=== PATIENT | female | born 1970 | race African-American/Black ===

== ENCOUNTER 2021-06-18 11:15 | Emergency (ER) | payer SELFPAY ==
[2021-06-18] MEDS ORDERED: Ketorolac Tromethamine 30 MG/ML VIAL ONE (12:30)
== END 2021-06-18 12:48 | disposition home or self-care (01) ==
LOC: CSHERS 11:15
DX: L03.811 Cellulitis of head [any part, except face] (principal); M25.511 Pain in right shoulder; M25.551 Pain in right hip; I10 Essential (primary) hypertension
CPT/HCPCS: 96372; J1885

== ENCOUNTER 2021-07-11 19:09 | Emergency (ER) | payer SELFPAY | END 2021-07-12 01:07 | disposition left against medical advice (07) | LOC: CSHERS 19:09 | DX: Z53.21 Procedure and treatment not carried out due to patient leaving prior to being seen by health care provider (principal) ==

== ENCOUNTER 2021-07-25 13:34 | Inpatient (IN) | payer OTHER, SELFPAY ==
[2021-07-25 14:49] LABS: #Eosinphils 0.4 10x3/uL (0.0-0.5); #Monocytes 0.8 10x3/uL (0.0-1.1); #Neutrophils 3.4 10x3/uL (1.5-8.4); %Basophils 0.3 % (0.0-2.0); %Eosinophils 4.9 % (0.0-6.0); %Lymphocytes 37.5 % (18.0-47.0); %Monocytes 10.4 % (0.0-10.0); %Neutrophils 46.6 % (40.0-75.0); Hemoglobin 11.6 g/dL (12.0-15.5); Mean Corpuscular HGB CONC 33.2 g/dL (32.0-36.0); Mean Corpuscular Hemoglobin 31.8 pg (27.0-33.0); Mean Corpuscular Volume 95.6 fl (81.6-98.3); Mean Platelet Volume 9.6 fl (7.4-10.4); Platelet Count 215 10x3/uL (150-450); RBC Distribution Width 13.2 % (11.5-14.5); Red Blood Cell (RBC) Count 3.65 10x6/uL (3.90-5.03); White Blood Cell (WBC) Count 7.3 10x3/uL (3.5-10.5)
[2021-07-25 14:58] LABS: ALT (SGPT) 27 U/L (8-55); AST (SGOT) 56 U/L (5-34); Albumin 3.4 g/dL (3.5-5.0); Alkaline Phosphatase 58 U/L (40-110); Anion Gap 10 mmol/L (10-20); BUN (Urea Nitrogen) 23 mg/dL (7.0-18.7); Bilirubin, Total 0.3 mg/dL (0.2-1.2); Calc. Creatinine Clearance 0 mL/min (70-130); Calcium 8.3 mg/dL (7.8-10.44); Carbon Dioxide 26 mmol/L (22-29); Chloride 109 mmol/L (98-107); Globulin 2.5 g/dL (2.4-3.5); Glucose 124 mg/dL (70-105); Potassium 4.3 mmol/L (3.5-5.1); Protein, Total 5.9 g/dL (6.0-8.3); Sodium 141 mmol/L (136-145)
[2021-07-25 15:20] LABS: CKMB 5.7 ng/mL (0-6.6)
[2021-07-25] MEDS ORDERED: Nitroglycerin 2% Ointment 1 INCH/1 GM Packet ONE (15:39)
[2021-07-25] MEDS ORDERED: Heparin 5,000 UNITS/ML VIAL ONE (15:39)
[2021-07-25] MEDS ORDERED: Aspirin Chewable 81 MG TAB ONE (15:39)
[2021-07-25] MEDS ORDERED: Heparin 25,000 units/D5W 500 ML ONE (15:40)
[2021-07-25] MEDS ORDERED: Acetaminophen 325 MG TAB PO PRN (17:23)
[2021-07-25] MEDS ORDERED: Acetaminophen 650 MG Suppository PR PRN (17:23)
[2021-07-25] MEDS ORDERED: Nitroglycerin 0.4 MG TAB (25 Tab Bottle) SL PRN (17:23)
[2021-07-25 17:48] LABS: Platelet Count 247 10x3/uL (150-450)
[2021-07-25 17:54] LABS: Troponin I 1.468 ng/mL (< 0.028)
[2021-07-25 19:15] LABS: Bilirubin Neg (Negative); Blood, Urine 50 (Negative); Clarity Clear (Clear); Glucose, Urine (Dipstick) Normal (Negative); Ketone, Urine Negative (Negative); Leukocyte Negative (Negative); Nitrite Negative (Negative); Protein, Urine (Dipstick) Negative (Neg-Trace)
[2021-07-25 19:20] LABS: SARS-CoV-2 NAA Rapid Test Not Detected (NotDetected)
[2021-07-25 19:24] LABS: Amphetamine Not Detected (NotDetected); Barbiturates Screen Not Detected (NotDetected); Benzodiazepine Screen Not Detected (NotDetected); Cocaine Metabolite Screen Detected (NotDetected); Methadone Not Detected (NotDetected); Methamphetamine Not Detected (NotDetected); Opiate Screen Not Detected (NotDetected); Oxycodone Screen Not Detected (NotDetected); Phencyclidine (PCP) Not Detected (NotDetected); THC/Cannabinoid Screen Detected (NotDetected); Tricyclic Screen Not Detected (NotDetected)
[2021-07-25 19:25] LABS: Bacteria/HPF Rare-Few HPF (None Seen); RBC/HPF 0-3 HPF (0-3); Squamous Epithelial 0-3 HPF (0-3); WBC/HPF 0-3 HPF (0-3)
[2021-07-25] MEDS ORDERED: Heparin 25,000 units/D5W 500 ML IVPB SCH (21:00)
[2021-07-26] MEDS: Atorvastatin Calcium 40 MG TAB PO SCH ×2 (00:30→01:02)
[2021-07-26] MEDS: Heparin 10,000 UNITS/ 10 ML VIAL SLOW IVP SCH ×2 (00:40→10:05)
[2021-07-26 02:13] VITALS: BMI 29.8
[2021-07-26 05:07] LABS: #Eosinphils 0.4 10x3/uL (0.0-0.5); #Monocytes 0.8 10x3/uL (0.0-1.1); #Neutrophils 2.2 10x3/uL (1.5-8.4); %Basophils 0.5 % (0.0-2.0); %Eosinophils 5.8 % (0.0-6.0); %Lymphocytes 45.9 % (18.0-47.0); %Monocytes 12.9 % (0.0-10.0); %Neutrophils 34.7 % (40.0-75.0); Hemoglobin 10.9 g/dL (12.0-15.5); Mean Corpuscular HGB CONC 33.1 g/dL (32.0-36.0); Mean Corpuscular Hemoglobin 31.1 pg (27.0-33.0); Mean Platelet Volume 9.5 fl (7.4-10.4); Platelet Count 207 10x3/uL (150-450); RBC Distribution Width 13.1 % (11.5-14.5); White Blood Cell (WBC) Count 6.2 10x3/uL (3.5-10.5)
[2021-07-26 05:28] LABS: Anion Gap 10 mmol/L (10-20); BUN (Urea Nitrogen) 14 mg/dL (7.0-18.7); Calc. Creatinine Clearance 129 mL/min (70-130); Calcium 8.8 mg/dL (7.8-10.44); Carbon Dioxide 25 mmol/L (22-29); Cardiac Risk 2.4 (Less than 4.5); Chloride 109 mmol/L (98-107); Cholesterol 160 mg/dl (< 200 Desired); Glucose 89 mg/dL (70-105); HDL Cholesterol 67 mg/dL (>60 Neg Risk); LDL Cholesterol, Calculated 84 mg/dL; Potassium 3.7 mmol/L (3.5-5.1); Sodium 140 mmol/L (136-145); Triglycerides 43 mg/dL (Less than 150)
[2021-07-26 07:55] VITALS: TEMP 97.3
[2021-07-26] MEDS ORDERED: Aspirin Chewable 81 MG TAB PO SCH (09:00)
[2021-07-26] MEDS ORDERED: Amlodipine 5 MG TAB PO SCH (09:00)
[2021-07-26 10:47] LABS: Troponin I 1.478 ng/mL (< 0.028)
[2021-07-26 13:45] LABS: CKMB 3.9 ng/mL (0-6.6)
[2021-07-26 15:59] VITALS: BP 140/86
== END 2021-07-26 16:53 | disposition left against medical advice (07) | DRG 917 ==
LOC: CSHERS 13:34 → CSHERHOLD 21:09 → CSHTELE 07-26 00:04
PROVIDERS: ADMIT Hospitalist; ATTEND Physician Assistant
DX: T40.5X1A Poisoning by cocaine, accidental (unintentional), initial encounter (principal); I21.A1 Myocardial infarction type 2; Z20.822 Contact with and (suspected) exposure to COVID-19; I10 Essential (primary) hypertension; F41.9 Anxiety disorder, unspecified; F31.9 Bipolar disorder, unspecified; F12.90 Cannabis use, unspecified, uncomplicated; E78.5 Hyperlipidemia, unspecified; F17.210 Nicotine dependence, cigarettes, uncomplicated; I25.10 Atherosclerotic heart disease of native coronary artery without angina pectoris; Z79.891 Long term (current) use of opiate analgesic; Z71.51 Drug abuse counseling and surveillance of drug abuser; Z79.899 Other long term (current) drug therapy; Z91.14 Patient's other noncompliance with medication regimen
CPT/HCPCS: 36415; 80048; 80053; 80061; 80306; 81003; 81015; 82553; 84484; 85025; 85730; 93005; 93306; 94760; J1644; U0002

== ENCOUNTER 2022-05-28 07:42 | Inpatient (IN) | payer OTHER, SELFPAY ==
[2022-05-28 08:07] LABS: #Eosinphils 0.1 10x3/uL (0.0-0.5); #Monocytes 0.8 10x3/uL (0.0-1.1); #Neutrophils 6.1 10x3/uL (1.5-8.4); %Basophils 0.3 % (0.0-2.0); %Eosinophils 0.6 % (0.0-6.0); %Monocytes 10.1 % (0.0-10.0); %Neutrophils 77.6 % (40.0-75.0); Hemoglobin 13.7 g/dL (12.0-15.5); Mean Corpuscular HGB CONC 34.9 g/dL (32.0-36.0); Mean Corpuscular Hemoglobin 32.8 pg (27.0-33.0); Mean Corpuscular Volume 93.8 fl (81.6-98.3); Mean Platelet Volume 9.2 fl (7.4-10.4); Platelet Count 208 10x3/uL (150-450); RBC Distribution Width 12.4 % (11.5-14.5); Red Blood Cell (RBC) Count 4.18 10x6/uL (3.90-5.03); White Blood Cell (WBC) Count 7.8 10x3/uL (3.5-10.5)
[2022-05-28 08:21] LABS: ALT (SGPT) 24 U/L (8-55); AST (SGOT) 31 U/L (5-34); Alkaline Phosphatase 68 U/L (40-110); Anion Gap 13 mmol/L (10-20); BUN (Urea Nitrogen) 12 mg/dL (9.8-20.1); Bilirubin, Total 0.3 mg/dL (0.2-1.2); Calc. Creatinine Clearance 0 mL/min (70-130); Carbon Dioxide 25 mmol/L (22-29); Chloride 104 mmol/L (98-107); Estimated GFR 84; Globulin 3.4 g/dL (2.4-3.5); Glucose 94 mg/dL (70-105); Potassium 4.3 mmol/L (3.5-5.1); Protein, Total 7.4 g/dL (6.0-8.3); Sodium 138 mmol/L (136-145)
[2022-05-28 09:03] LABS: CKMB 0.6 ng/mL (0-6.6)
[2022-05-28] MEDS ORDERED: Ondansetron PF 4 MG/2 ML Vial ONE (09:20)
[2022-05-28] MEDS ORDERED: Acetaminophen 500 MG TAB ONE (09:20)
[2022-05-28] MEDS ORDERED: Aspirin 325 MG TAB ONE (09:21)
[2022-05-28] MEDS ORDERED: Enoxaparin Sodium 60 MG/0.6 ML SYRINGE ONE (09:21)
[2022-05-28] MEDS ORDERED: HYDROcodone/Acetaminophen 7.5/325 mg Tablet PO PRN (10:53)
[2022-05-28] MEDS ORDERED: Acetaminophen 325 MG TAB PO PRN (10:53)
[2022-05-28] MEDS ORDERED: Senokot S 8.6-50 MG TAB PO PRN (10:53)
[2022-05-28] MEDS ORDERED: Ondansetron PF 4 MG/2 ML Vial IVP PRN (10:57)
[2022-05-28 11:37] LABS: Troponin I 0.316 ng/mL (< 0.028)
[2022-05-28] MEDS ORDERED: HYDROcodone/Acetaminophen 7.5/325 mg Tablet ONE (14:04)
[2022-05-28 15:09] LABS: Troponin I 0.293 ng/mL (< 0.028)
[2022-05-28 15:14] LABS: SARS-CoV-2 NAA Rapid Test Not Detected (NotDetected)
[2022-05-28] MEDS: Sodium Chloride 0.9% 1,000 ML IV SCH (16:23)
[2022-05-28 16:51] LABS: Bilirubin Neg (Negative); Blood, Urine 150 (Negative); Glucose, Urine (Dipstick) Normal (Negative); Ketone, Urine Negative (Negative); Leukocyte Negative (Negative); Nitrite Negative (Negative); Protein, Urine (Dipstick) 15 mg/dl (Neg-Trace); Specific Gravity, Urine 1.015 (1.005-1.030); Urobilinogen Normal mg/dL (Less than 2)
[2022-05-28 16:52] VITALS: BMI 27.8
[2022-05-28 16:53] LABS: Clarity Clear (Clear)
[2022-05-28] MEDS ORDERED: FLU VACC QS2022-23(6MOS UP)/PF 60 MCG/0.5 ML SYRINGE IM ONE (17:00)
[2022-05-28 17:01] LABS: Amphetamine Not Detected (NotDetected); Barbiturates Screen Not Detected (NotDetected); Benzodiazepine Screen Not Detected (NotDetected); Cocaine Metabolite Screen Detected (NotDetected); Methadone Not Detected (NotDetected); Methamphetamine Not Detected (NotDetected); Opiate Screen Not Detected (NotDetected); Oxycodone Screen Not Detected (NotDetected); Phencyclidine (PCP) Not Detected (NotDetected); THC/Cannabinoid Screen Detected (NotDetected); Tricyclic Screen Not Detected (NotDetected)
[2022-05-28 17:04] LABS: Bacteria/HPF 1+ HPF (None Seen); Mucous/LPF 2+ LPF (<2+); Squamous Epithelial 0-3 HPF (0-3); WBC/HPF 0-3 HPF (0-3)
[2022-05-28] MEDS ORDERED: GUAIFENESIN SF SOLN 200 MG/10 ML UDCUP PO PRN (17:22)
[2022-05-28] MEDS ORDERED: Promethazine HCl 6.25 MG/5 ML Syrup PO PRN (17:43)
[2022-05-28] MEDS ORDERED: Cepastat Lozenges 1 LOZ PO PRN (17:50)
[2022-05-28] MEDS: HYDROcodone/Acetaminophen 7.5/325 mg Tablet PO PRN ×2 (18:05→21:37)
[2022-05-28] MEDS: GUAIFENESIN SF SOLN 200 MG/10 ML UDCUP PO PRN ×2 (18:12→21:39)
[2022-05-28] MEDS ORDERED: Famotidine 20 MG TAB PO SCH (21:00)
[2022-05-28] MEDS ORDERED: guaiFENesin ER 600 MG TAB PO SCH (21:00)
[2022-05-28] MEDS: Benzonatate 100 MG CAP PO PRN (21:36)
[2022-05-28] MEDS: Enoxaparin Sodium 80 MG/0.8 ML SYRINGE SC SCH (21:36)
[2022-05-28] MEDS: Atorvastatin Calcium 40 MG TAB PO SCH (21:36)
[2022-05-28] MEDS: Metoprolol Tartrate 25 MG TAB PO SCH (21:37)
[2022-05-29] MEDS: HYDROcodone/Acetaminophen 7.5/325 mg Tablet PO PRN ×6 (01:51→23:41)
[2022-05-29 04:43] LABS: #Eosinphils 0.1 10x3/uL (0.0-0.5); #Monocytes 0.8 10x3/uL (0.0-1.1); #Neutrophils 5.5 10x3/uL (1.5-8.4); %Basophils 0.3 % (0.0-2.0); %Eosinophils 1.1 % (0.0-6.0); %Lymphocytes 14.6 % (18.0-47.0); %Monocytes 10.9 % (0.0-10.0); %Neutrophils 72.8 % (40.0-75.0); Hemoglobin 12.7 g/dL (12.0-15.5); Mean Corpuscular HGB CONC 35.2 g/dL (32.0-36.0); Mean Corpuscular Hemoglobin 32.8 pg (27.0-33.0); Mean Corpuscular Volume 93.3 fl (81.6-98.3); Mean Platelet Volume 9.3 fl (7.4-10.4); Platelet Count 175 10x3/uL (150-450); RBC Distribution Width 12.4 % (11.5-14.5); Red Blood Cell (RBC) Count 3.87 10x6/uL (3.90-5.03); White Blood Cell (WBC) Count 7.5 10x3/uL (3.5-10.5)
[2022-05-29 05:08] LABS: Anion Gap 12 mmol/L (10-20); BUN (Urea Nitrogen) 10 mg/dL (9.8-20.1); Calc. Creatinine Clearance 107 mL/min (70-130); Calcium 8.9 mg/dL (7.8-10.44); Carbon Dioxide 24 mmol/L (22-29); Cardiac Risk 2.6 (Less than 4.5); Chloride 104 mmol/L (98-107); Cholesterol 158 mg/dl (< 200 Desired); Estimated GFR 93; Glucose 98 mg/dL (70-105); HDL Cholesterol 60 mg/dL (>60 Neg Risk); LDL Cholesterol, Calculated 87 mg/dL; Potassium 3.7 mmol/L (3.5-5.1); Sodium 136 mmol/L (136-145); Triglycerides 56 mg/dL (Less than 150)
[2022-05-29] MEDS: GUAIFENESIN SF SOLN 200 MG/10 ML UDCUP PO PRN ×2 (06:05→20:30)
[2022-05-29] MEDS: Enoxaparin Sodium 80 MG/0.8 ML SYRINGE SC SCH ×2 (08:53→20:27)
[2022-05-29] MEDS: Amlodipine 5 MG TAB PO SCH (08:54)
[2022-05-29] MEDS: Metoprolol Tartrate 25 MG TAB PO SCH ×2 (08:54→20:28)
[2022-05-29] MEDS: Aspirin 325 mg Enteric Coated Tablet PO SCH (08:54)
[2022-05-29] MEDS ORDERED: Electrolyte Replacement Protocol 1 EACH FS SCH (14:30)
[2022-05-29] MEDS: Benzonatate 100 MG CAP PO PRN ×2 (14:51→20:30)
[2022-05-29 15:09] LABS: Magnesium 1.8 mg/dL (1.6-2.6)
[2022-05-29] MEDS ORDERED: Magnesium 2 GM/50 ML(in water) 2 GM in Premix Bag 1 BAG IVPB SCH (15:15)
[2022-05-29] MEDS: Sodium Chloride 0.9% 1,000 ML IV SCH ×2 (15:31→15:32)
[2022-05-29] MEDS: Atorvastatin Calcium 40 MG TAB PO SCH (20:27)
[2022-05-30] MEDS: HYDROcodone/Acetaminophen 7.5/325 mg Tablet PO PRN ×2 (03:31→09:14)
[2022-05-30 05:20] LABS: ALT (SGPT) 25 U/L (8-55); AST (SGOT) 33 U/L (5-34); Albumin 3.3 g/dL (3.5-5.0); Alkaline Phosphatase 55 U/L (40-110); Anion Gap 11 mmol/L (10-20); BUN (Urea Nitrogen) 7 mg/dL (9.8-20.1); Bilirubin, Total 0.3 mg/dL (0.2-1.2); Calc. Creatinine Clearance 104 mL/min (70-130); Calcium 8.7 mg/dL (7.8-10.44); Carbon Dioxide 25 mmol/L (22-29); Chloride 103 mmol/L (98-107); Estimated GFR 91; Globulin 3.1 g/dL (2.4-3.5); Glucose 87 mg/dL (70-105); Magnesium 2.3 mg/dL (1.6-2.6); Potassium 3.5 mmol/L (3.5-5.1); Protein, Total 6.4 g/dL (6.0-8.3); Sodium 135 mmol/L (136-145)
[2022-05-30] MEDS ORDERED: Potassium Chloride 20 MEQ TAB PO SCH (06:00)
[2022-05-30] MEDS: Amlodipine 5 MG TAB PO SCH (09:14)
[2022-05-30] MEDS: Enoxaparin Sodium 80 MG/0.8 ML SYRINGE SC SCH (09:14)
[2022-05-30] MEDS: Metoprolol Tartrate 25 MG TAB PO SCH (09:14)
[2022-05-30] MEDS: Aspirin 325 mg Enteric Coated Tablet PO SCH (09:15)
[2022-05-30] MEDS: GUAIFENESIN SF SOLN 200 MG/10 ML UDCUP PO PRN (09:18)
[2022-05-30] MEDS: Benzonatate 100 MG CAP PO PRN (09:18)
[2022-05-30] MEDS: Sodium Chloride 0.9% 1,000 ML IV SCH (09:23)
[2022-05-30] MEDS ORDERED: HYDROcodone/Acetaminophen 5/325 mg Tablet PO SCH (11:00)
[2022-05-30 11:47] VITALS: BP 125/76; TEMP 98.1
[2022-05-30 19:53] LABS: Campy jejuni + coli by PCR Negative (Negative); STEC Shiga Toxin 1+2 Negative (Negative); Salmonella spp. by PCR Negative (Negative); Shigella spp + EIEC by PCR Negative (Negative)
== END 2022-05-30 12:10 | disposition home or self-care (01) | DRG 918 ==
LOC: CSHERS 07:42 → CSHTELE 15:40
PROVIDERS: ADMIT Family Medicine; ATTEND Internal Medicine
DX: T40.5X1A Poisoning by cocaine, accidental (unintentional), initial encounter (principal); I73.9 Peripheral vascular disease, unspecified; I25.2 Old myocardial infarction; I10 Essential (primary) hypertension; E78.5 Hyperlipidemia, unspecified; F14.90 Cocaine use, unspecified, uncomplicated; K21.9 Gastro-esophageal reflux disease without esophagitis; F31.9 Bipolar disorder, unspecified; F41.9 Anxiety disorder, unspecified; M25.469 Effusion, unspecified knee; F12.10 Cannabis abuse, uncomplicated; R19.7 Diarrhea, unspecified; Z20.822 Contact with and (suspected) exposure to COVID-19; Z79.82 Long term (current) use of aspirin; Z79.899 Other long term (current) drug therapy
CPT/HCPCS: 36415; 71045; 80048; 80053; 80061; 80306; 81001; 82553; 83735; 84443; 84484; 85025; 87505; 93005; 96372; 96374; J1650; J2405; J3475; J7050

== ENCOUNTER 2022-07-20 03:20 | Emergency (ER) | payer SELFPAY ==
[2022-07-20 03:43] LABS: Bilirubin Neg (Negative); Blood, Urine 150 (Negative); Clarity Slightly Cloudy (Clear); Glucose, Urine (Dipstick) Normal (Negative); Ketone, Urine 15 mg/dL (Negative); Leukocyte 500 (Negative); Nitrite Negative (Negative); Protein, Urine (Dipstick) 30 mg/dl (Neg-Trace)
[2022-07-20 03:53] LABS: Amphetamine Not Detected (NotDetected); Barbiturates Screen Not Detected (NotDetected); Benzodiazepine Screen Not Detected (NotDetected); Cocaine Metabolite Screen Detected (NotDetected); Methadone Not Detected (NotDetected); Methamphetamine Not Detected (NotDetected); Opiate Screen Not Detected (NotDetected); Oxycodone Screen Not Detected (NotDetected); Phencyclidine (PCP) Not Detected (NotDetected); THC/Cannabinoid Screen Detected (NotDetected); Tricyclic Screen Not Detected (NotDetected)
[2022-07-20 03:56] LABS: #Monocytes 1.2 10x3/uL (0.0-1.1); #Neutrophils 5.8 10x3/uL (1.5-8.4); %Basophils 0.3 % (0.0-2.0); %Eosinophils 0.3 % (0.0-6.0); %Lymphocytes 27.5 % (18.0-47.0); %Monocytes 12.4 % (0.0-10.0); %Neutrophils 59.3 % (40.0-75.0); Hemoglobin 12.4 g/dL (12.0-15.5); Mean Corpuscular HGB CONC 35.3 g/dL (32.0-36.0); Mean Corpuscular Hemoglobin 32.4 pg (27.0-33.0); Mean Corpuscular Volume 91.6 fl (81.6-98.3); Mean Platelet Volume 8.7 fl (7.4-10.4); Platelet Count 310 10x3/uL (150-450); RBC Distribution Width 12.6 % (11.5-14.5); Red Blood Cell (RBC) Count 3.83 10x6/uL (3.90-5.03); White Blood Cell (WBC) Count 9.8 10x3/uL (3.5-10.5)
[2022-07-20 04:01] LABS: Bacteria/HPF 2+ HPF (None Seen); Squamous Epithelial 0-3 HPF (0-3)
[2022-07-20 04:14] LABS: Acetaminophen Less than 10.0 mcg/mL (10.0-30.0); Alcohol Less than 10 mg/dL (Less than 10); Salicylate Less than 8.0 mg/dL (15.0-30.0)
[2022-07-20 04:14] LABS: SARS-CoV-2 NAA Rapid Test Not Detected (NotDetected)
[2022-07-20 04:14] LABS: ALT (SGPT) 25 U/L (8-55); AST (SGOT) 34 U/L (5-34); Albumin 4.3 g/dL (3.5-5.0); Alkaline Phosphatase 51 U/L (40-110); Anion Gap 13 mmol/L (10-20); BUN (Urea Nitrogen) 19 mg/dL (9.8-20.1); Bilirubin, Total 0.9 mg/dL (0.2-1.2); Calc. Creatinine Clearance 0 mL/min (70-130); Calcium 9.7 mg/dL (7.8-10.44); Carbon Dioxide 27 mmol/L (22-29); Chloride 101 mmol/L (98-107); Estimated GFR 77; Globulin 3.4 g/dL (2.4-3.5); Glucose 75 mg/dL (70-105); Potassium 3.2 mmol/L (3.5-5.1); Protein, Total 7.7 g/dL (6.0-8.3); Sodium 138 mmol/L (136-145)
[2022-07-20] MEDS ORDERED: Acetaminophen 500 MG TAB ONE (05:46)
[2022-07-20] MEDS ORDERED: Amlodipine 5 MG TAB ONE (07:41)
[2022-07-20] MEDS ORDERED: HYDROcodone/Acetaminophen 10/325 mg Tablet ONE (07:42)
== END 2022-07-20 11:58 ==
LOC: CSHERS 03:20
DX: R45.851 Suicidal ideations (principal); F25.9 Schizoaffective disorder, unspecified; F14.10 Cocaine abuse, uncomplicated; F12.10 Cannabis abuse, uncomplicated; Z20.822 Contact with and (suspected) exposure to COVID-19; I10 Essential (primary) hypertension; E78.5 Hyperlipidemia, unspecified; F17.200 Nicotine dependence, unspecified, uncomplicated
CPT/HCPCS: 36415; 80053; 80306; 80307; 81003; 81015; 84443; 85025; 99285; U0002

== ENCOUNTER 2023-01-22 14:26 | Emergency (ER) | payer OTHER, SELFPAY ==
[2023-01-22] MEDS ORDERED: Ketorolac Tromethamine 30 MG/ML VIAL ONE (15:31)
== END 2023-01-22 16:02 | disposition home or self-care (01) ==
LOC: CSHERS 14:26
DX: M25.561 Pain in right knee (principal); M25.562 Pain in left knee; F17.210 Nicotine dependence, cigarettes, uncomplicated; K08.89 Other specified disorders of teeth and supporting structures; I10 Essential (primary) hypertension; I25.2 Old myocardial infarction
CPT/HCPCS: J1885

== ENCOUNTER 2023-03-20 15:26 | Emergency (ER) | payer OTHER, SELFPAY ==
[2023-03-21] MEDS ORDERED: Aspirin Chewable 81 MG TAB ONE (07:14)
== END 2023-03-20 18:21 | disposition left against medical advice (07) ==
LOC: CSHERS 15:26
DX: Z53.21 Procedure and treatment not carried out due to patient leaving prior to being seen by health care provider (principal)
CPT/HCPCS: 93005

== ENCOUNTER 2023-03-21 06:33 | Emergency (ER) | payer OTHER, SELFPAY ==
[2023-03-21 07:40] LABS: #Eosinphils 0.1 10x3/uL (0.0-0.5); #Monocytes 0.7 10x3/uL (0.0-1.1); #Neutrophils 2.8 10x3/uL (1.5-8.4); %Basophils 0.5 % (0.0-2.0); %Eosinophils 1.7 % (0.0-6.0); %Lymphocytes 42.3 % (18.0-47.0); %Monocytes 10.9 % (0.0-10.0); %Neutrophils 44.4 % (40.0-75.0); Hemoglobin 12.9 g/dL (12.0-15.5); Mean Corpuscular HGB CONC 33.9 g/dL (32.0-36.0); Mean Corpuscular Hemoglobin 32.4 pg (27.0-33.0); Mean Corpuscular Volume 95.5 fl (81.6-98.3); Mean Platelet Volume 9.3 fl (7.4-10.4); Platelet Count 221 10x3/uL (150-450); RBC Distribution Width 13.2 % (11.5-14.5); Red Blood Cell (RBC) Count 3.98 10x6/uL (3.90-5.03); White Blood Cell (WBC) Count 6.3 10x3/uL (3.5-10.5)
[2023-03-21 08:03] LABS: ALT (SGPT) 15 U/L (8-55); AST (SGOT) 26 U/L (5-34); Albumin 3.8 g/dL (3.5-5.0); Alkaline Phosphatase 69 U/L (40-110); Anion Gap 12 mmol/L (10-20); BUN (Urea Nitrogen) 17 mg/dL (9.8-20.1); Bilirubin, Total 0.4 mg/dL (0.2-1.2); Calc. Creatinine Clearance 0 mL/min (70-130); Carbon Dioxide 24 mmol/L (22-29); Chloride 108 mmol/L (98-107); Estimated GFR 84; Globulin 3.1 g/dL (2.4-3.5); Glucose 90 mg/dL (70-105); Potassium 4.1 mmol/L (3.5-5.1); Protein, Total 6.9 g/dL (6.0-8.3); Sodium 140 mmol/L (136-145)
[2023-03-21 08:06] LABS: Troponin I 0.289 ng/mL (< 0.028)
[2023-03-21 10:22] LABS: Troponin I 0.303 ng/mL (< 0.028)
== END 2023-03-21 10:40 | disposition home or self-care (01) ==
LOC: CSHERS 06:33
DX: R07.9 Chest pain, unspecified (principal); R79.89 Other specified abnormal findings of blood chemistry; E78.5 Hyperlipidemia, unspecified; I10 Essential (primary) hypertension
CPT/HCPCS: 71045; 80053; 83735; 84484; 85025; 85379; 93005

== ENCOUNTER 2023-05-15 14:55 | Emergency (ER) | payer OTHER ==
[2023-05-15] MEDS ORDERED: Ibuprofen 200 MG TAB ONE (16:42)
== END 2023-05-15 18:05 | disposition home or self-care (01) ==
LOC: CSHERS 14:55
DX: M25.562 Pain in left knee (principal); M25.561 Pain in right knee; I10 Essential (primary) hypertension

== ENCOUNTER 2023-08-10 12:24 | Inpatient (IN) | payer OTHER, SELFPAY ==
[2023-08-10 13:25] LABS: Bilirubin Neg (Negative); Blood, Urine 50 (Negative); Clarity Clear (Clear); Glucose, Urine (Dipstick) Normal (Negative); Ketone, Urine Negative (Negative); Leukocyte Negative (Negative); Nitrite Negative (Negative); Protein, Urine (Dipstick) Negative (Neg-Trace); Specific Gravity, Urine 1.025 (1.005-1.030); Urobilinogen Normal mg/dL (Less than 2)
[2023-08-10 13:27] LABS: #Eosinphils 0.1 10x3/uL (0.0-0.5); #Monocytes 0.8 10x3/uL (0.0-1.1); #Neutrophils 6.2 10x3/uL (1.5-8.4); %Basophils 0.3 % (0.0-2.0); %Eosinophils 1.5 % (0.0-6.0); %Lymphocytes 23.7 % (18.0-47.0); %Neutrophils 66.2 % (40.0-75.0); Hematocrit 38.1 % (34.9-44.5); Hemoglobin 13.4 g/dL (12.0-15.5); Mean Corpuscular HGB CONC 35.2 g/dL (32.0-36.0); Mean Corpuscular Hemoglobin 32.8 pg (27.0-33.0); Mean Corpuscular Volume 93.4 fl (81.6-98.3); Mean Platelet Volume 9.6 fl (7.4-10.4); Platelet Count 247 10x3/uL (150-450); RBC Distribution Width 12.6 % (11.5-14.5); Red Blood Cell (RBC) Count 4.08 10x6/uL (3.90-5.03); White Blood Cell (WBC) Count 9.4 10x3/uL (3.5-10.5)
[2023-08-10 13:40] LABS: Anion Gap 9 mmol/L (10-20); BUN (Urea Nitrogen) 14 mg/dL (9.8-20.1); Calc. Creatinine Clearance 0 mL/min (70-130); Calcium 9.1 mg/dL (7.8-10.44); Carbon Dioxide 25 mmol/L (22-29); Chloride 110 mmol/L (98-107); Estimated GFR 84; Glucose 95 mg/dL (70-105); Potassium 4.3 mmol/L (3.5-5.1); Sodium 140 mmol/L (136-145)
[2023-08-10 13:49] LABS: Bacteria/HPF Rare-Few HPF (None Seen); CAUTI Indications for Culture Pelvic or flank pain; RBC/HPF 0-3 HPF (0-3); Squamous Epithelial 0-3 HPF (0-3); WBC/HPF 0-3 HPF (0-3)
[2023-08-10 13:51] LABS: Urine Culture Reflex No No
[2023-08-10] MEDS ORDERED: Iopamidol 300 61% 100 ML VIAL FS ONE (13:57)
[2023-08-10 14:13] LABS: Troponin I 0.403 ng/mL (< 0.028)
[2023-08-10 17:16] LABS: Pregnancy Test - Urine (BHCG) Negative (Negative); Specific Gravity 1.025 (1.002-1.036)
[2023-08-10 17:17] LABS: Pregu Control Background? CLEAR/WHITE (CLR/WHITE); Pregu Control Bar Appear? YES (CONTROL BAR)
[2023-08-10 18:42] LABS: Amphetamine Not Detected (NotDetected); Barbiturates Screen Not Detected (NotDetected); Benzodiazepine Screen Not Detected (NotDetected); Cocaine Metabolite Screen Not Detected (NotDetected); Methadone Not Detected (NotDetected); Methamphetamine Not Detected (NotDetected); Opiate Screen Not Detected (NotDetected); Oxycodone Screen Not Detected (NotDetected); Phencyclidine (PCP) Not Detected (NotDetected); THC/Cannabinoid Screen Detected (NotDetected); Tricyclic Screen Not Detected (NotDetected)
[2023-08-10] MEDS: traZODone HCl 50 MG TAB PO SCH (22:38)
[2023-08-10] MEDS: OLANZapine 5 MG TAB PO SCH (22:38)
[2023-08-10 23:12] LABS: Critical Call Chem Troponin I NUR.AMS @ 2312; Troponin I 0.353 ng/mL (< 0.028)
[2023-08-11] MEDS ORDERED: HYDROcodone/Acetaminophen 10/325 mg Tablet PO SCH (01:45)
[2023-08-11 05:34] LABS: Anion Gap 11 mmol/L (10-20); BUN (Urea Nitrogen) 12 mg/dL (9.8-20.1); Calc. Creatinine Clearance 0 mL/min (70-130); Calcium 8.7 mg/dL (7.8-10.44); Carbon Dioxide 23 mmol/L (22-29); Cardiac Risk 2.8 (Less than 4.5); Chloride 108 mmol/L (98-107); Cholesterol 168 mg/dl (< 200 Desired); Estimated GFR 86; Glucose 113 mg/dL (70-105); HDL Cholesterol 61 mg/dL (>60 Neg Risk); LDL Cholesterol, Calculated 88 mg/dL; Potassium 4.1 mmol/L (3.5-5.1); Sodium 138 mmol/L (136-145); Triglycerides 93 mg/dL (Less than 150)
[2023-08-11 05:49] LABS: #Eosinphils 0.2 10x3/uL (0.0-0.5); #Monocytes 0.7 10x3/uL (0.0-1.1); #Neutrophils 3.7 10x3/uL (1.5-8.4); %Basophils 0.1 % (0.0-2.0); %Eosinophils 2.6 % (0.0-6.0); %Lymphocytes 36.5 % (18.0-47.0); %Monocytes 10.2 % (0.0-10.0); %Neutrophils 50.5 % (40.0-75.0); Hematocrit 34.3 % (34.9-44.5); Hemoglobin 11.7 g/dL (12.0-15.5); Mean Corpuscular HGB CONC 34.1 g/dL (32.0-36.0); Mean Corpuscular Hemoglobin 32.2 pg (27.0-33.0); Mean Corpuscular Volume 94.5 fl (81.6-98.3); Mean Platelet Volume 9.6 fl (7.4-10.4); Platelet Count 216 10x3/uL (150-450); RBC Distribution Width 12.7 % (11.5-14.5); Red Blood Cell (RBC) Count 3.63 10x6/uL (3.90-5.03); White Blood Cell (WBC) Count 7.3 10x3/uL (3.5-10.5)
[2023-08-11] MEDS ORDERED: FLU VACC QS2023-24(6MOS UP)/PF 60 MCG/0.5 ML SYRINGE IM ONE (09:00)
[2023-08-11] MEDS: Aspirin Chewable 81 MG TAB PO SCH (10:20)
[2023-08-11] MEDS: Acetaminophen 325 MG TAB PO PRN ×2 (10:20→22:38)
[2023-08-11] MEDS ORDERED: GoLYTELY 4,000 ml Bottle PO SCH (17:00)
[2023-08-11] MEDS: traZODone HCl 50 MG TAB PO SCH (22:38)
[2023-08-11] MEDS: Metoprolol Tartrate 25 MG TAB PO SCH (22:39)
[2023-08-11] MEDS: OLANZapine 5 MG TAB PO SCH (22:40)
[2023-08-11] MEDS ORDERED: Lidocaine 4% Patch TD SCH (23:15)
[2023-08-11] MEDS ORDERED: traMADol HCl 50 MG TAB PO SCH (23:15)
[2023-08-12 05:43] LABS: #Eosinphils 0.1 10x3/uL (0.0-0.5); #Monocytes 0.8 10x3/uL (0.0-1.1); #Neutrophils 3.2 10x3/uL (1.5-8.4); %Basophils 0.1 % (0.0-2.0); %Eosinophils 1.9 % (0.0-6.0); %Lymphocytes 38.8 % (18.0-47.0); %Monocytes 11.5 % (0.0-10.0); %Neutrophils 47.6 % (40.0-75.0); Hematocrit 34.8 % (34.9-44.5); Hemoglobin 12.3 g/dL (12.0-15.5); Mean Corpuscular HGB CONC 35.3 g/dL (32.0-36.0); Mean Corpuscular Hemoglobin 32.8 pg (27.0-33.0); Mean Corpuscular Volume 92.8 fl (81.6-98.3); Mean Platelet Volume 9.5 fl (7.4-10.4); Platelet Count 226 10x3/uL (150-450); RBC Distribution Width 12.5 % (11.5-14.5); Red Blood Cell (RBC) Count 3.75 10x6/uL (3.90-5.03); White Blood Cell (WBC) Count 6.8 10x3/uL (3.5-10.5)
[2023-08-12 05:52] LABS: Anion Gap 13 mmol/L (10-20); BUN (Urea Nitrogen) 9 mg/dL (9.8-20.1); Calc. Creatinine Clearance 0 mL/min (70-130); Calcium 9.1 mg/dL (7.8-10.44); Carbon Dioxide 26 mmol/L (22-29); Chloride 105 mmol/L (98-107); Estimated GFR 97; Glucose 83 mg/dL (70-105); Potassium 3.9 mmol/L (3.5-5.1); Sodium 140 mmol/L (136-145)
[2023-08-12] MEDS ORDERED: PHENYLEPHRINE-NS 100 MCG/ML 10 ML SYRINGE ONE (08:00)
[2023-08-12] MEDS ORDERED: PROPOFOL 40 ML ONE (08:00)
[2023-08-12] MEDS ORDERED: Lidocaine 2% MPF 10 ML AMP (For Epidural Use) ONE (08:00)
[2023-08-12] MEDS ORDERED: PROPOFOL 20 ML ONE (08:31)
[2023-08-12] MEDS: Metoprolol Tartrate 25 MG TAB PO SCH ×3 (10:34→22:21)
[2023-08-12] MEDS: Aspirin Chewable 81 MG TAB PO SCH (10:43)
[2023-08-12] MEDS ORDERED: LIDOCAINE Patch Removal TOP SCH (11:15)
[2023-08-12] MEDS: traMADol HCl 50 MG TAB PO PRN ×2 (14:26→22:21)
[2023-08-12] MEDS ORDERED: Communication Order-Pharmacy FS SCH (17:00)
[2023-08-12] MEDS: traZODone HCl 50 MG TAB PO SCH (22:21)
[2023-08-12] MEDS: OLANZapine 5 MG TAB PO SCH (22:24)
[2023-08-13 01:00] LABS: Campy jejuni + coli by PCR Negative (Negative); STEC Shiga Toxin 1+2 Negative (Negative); Salmonella spp. by PCR Negative (Negative); Shigella spp + EIEC by PCR Negative (Negative)
[2023-08-13 05:10] LABS: #Eosinphils 0.1 10x3/uL (0.0-0.5); #Monocytes 0.9 10x3/uL (0.0-1.1); #Neutrophils 3.2 10x3/uL (1.5-8.4); %Basophils 0.3 % (0.0-2.0); %Eosinophils 1.8 % (0.0-6.0); %Lymphocytes 34.2 % (18.0-47.0); %Neutrophils 49.5 % (40.0-75.0); Hematocrit 36.1 % (34.9-44.5); Hemoglobin 12.8 g/dL (12.0-15.5); Mean Corpuscular HGB CONC 35.5 g/dL (32.0-36.0); Mean Corpuscular Hemoglobin 32.7 pg (27.0-33.0); Mean Corpuscular Volume 92.3 fl (81.6-98.3); Mean Platelet Volume 9.4 fl (7.4-10.4); Platelet Count 215 10x3/uL (150-450); RBC Distribution Width 12.5 % (11.5-14.5); Red Blood Cell (RBC) Count 3.91 10x6/uL (3.90-5.03); White Blood Cell (WBC) Count 6.6 10x3/uL (3.5-10.5)
[2023-08-13 05:11] LABS: Anion Gap 9 mmol/L (10-20); BUN (Urea Nitrogen) 11 mg/dL (9.8-20.1); Calc. Creatinine Clearance 0 mL/min (70-130); Calcium 9.2 mg/dL (7.8-10.44); Carbon Dioxide 31 mmol/L (22-29); Chloride 102 mmol/L (98-107); Estimated GFR 89; Glucose 91 mg/dL (70-105); Potassium 4.5 mmol/L (3.5-5.1); Sodium 137 mmol/L (136-145)
[2023-08-13] MEDS: Metoprolol Tartrate 25 MG TAB PO SCH (06:48)
[2023-08-13] MEDS: Aspirin Chewable 81 MG TAB PO SCH (06:58)
[2023-08-13] MEDS: traMADol HCl 50 MG TAB PO PRN (06:58)
[2023-08-13] MEDS ORDERED: Nitroglycerin 50 MG/250 ML BOT 0 ML ONE (07:18)
[2023-08-13] MEDS ORDERED: Lidocaine 1% (PF) 30 ML VIAL ONE (07:18)
[2023-08-13] MEDS ORDERED: Adenosine 6 mg (2 mL) VIAL ONE (07:19)
[2023-08-13] MEDS ORDERED: Heparin 10,000 UNITS/ 10 ML VIAL ONE (07:19)
[2023-08-13] MEDS ORDERED: Amlodipine 5 MG TAB PO SCH (09:00)
[2023-08-13 10:57] VITALS: BP 112/59; TEMP 98.1
[2023-08-13] MEDS ORDERED: Atorvastatin Calcium 10 MG TAB PO SCH (21:00)
== END 2023-08-13 11:15 | disposition home or self-care (01) | DRG 377 ==
LOC: CSHERS 12:24 → CSHTELE 16:00 → OBSVTOIN 08-11 13:36
PROVIDERS: ADMIT Internal Medicine; ATTEND Internal Medicine
PROC: 0DB98ZX Excision of Duodenum, Via Natural or Artificial Opening Endoscopic, Diagnostic (ICD-10-PCS; principal; 2023-08-12)
PROC: 0DB78ZX Excision of Stomach, Pylorus, Via Natural or Artificial Opening Endoscopic, Diagnostic (ICD-10-PCS; 2023-08-12)
PROC: 0DBG8ZX Excision of Left Large Intestine, Via Natural or Artificial Opening Endoscopic, Diagnostic (ICD-10-PCS; 2023-08-12)
PROC: 0DBF8ZX Excision of Right Large Intestine, Via Natural or Artificial Opening Endoscopic, Diagnostic (ICD-10-PCS; 2023-08-12)
PROC: 3E033XZ Introduction of Vasopressor into Peripheral Vein, Percutaneous Approach (ICD-10-PCS; 2023-08-12)
DX: K25.4 Chronic or unspecified gastric ulcer with hemorrhage (principal); I21.4 Non-ST elevation (NSTEMI) myocardial infarction; K52.1 Toxic gastroenteritis and colitis; K29.71 Gastritis, unspecified, with bleeding; I10 Essential (primary) hypertension; F31.9 Bipolar disorder, unspecified; R07.89 Other chest pain; F20.9 Schizophrenia, unspecified; T39.395A Adverse effect of other nonsteroidal anti-inflammatory drugs [NSAID], initial encounter; F41.9 Anxiety disorder, unspecified; I25.10 Atherosclerotic heart disease of native coronary artery without angina pectoris; E78.5 Hyperlipidemia, unspecified; R19.7 Diarrhea, unspecified; M19.90 Unspecified osteoarthritis, unspecified site; F12.10 Cannabis abuse, uncomplicated; F14.10 Cocaine abuse, uncomplicated; M06.9 Rheumatoid arthritis, unspecified; Z71.51 Drug abuse counseling and surveillance of drug abuser; Z71.6 Tobacco abuse counseling; Z79.82 Long term (current) use of aspirin; Z79.899 Other long term (current) drug therapy; Z98.890 Other specified postprocedural states; Z91.199 Patient's noncompliance with other medical treatment and regimen due to unspecified reason
CPT/HCPCS: 36415; 71045; 74177; 76705; 80048; 80061; 80306; 81001; 81025; 82274; 83690; 83735; 84443; 84484; 85025; 87324; 87328; 87329; 87449; 87505; 88305; 93005; 93010; 93306; 94760; G0378; J0153; J1644; J2001; J2704; Q9967

== ENCOUNTER 2024-01-17 15:27 | Emergency (ER) | payer OTHER, SELFPAY ==
[2024-01-17 16:42] LABS: Influenza A by NAA Not Detected (NotDetected); Influenza B by NAA Not Detected (NotDetected); SARS-CoV-2 NAA Rapid Test Not Detected (NotDetected)
== END 2024-01-17 16:18 | disposition home or self-care (01) ==
LOC: CSHERS 15:27
DX: R05.9 Cough, unspecified (principal); R06.02 Shortness of breath; I10 Essential (primary) hypertension
CPT/HCPCS: 71045

== ENCOUNTER 2024-02-01 13:52 | Emergency (ER) | payer OTHER ==
[2024-02-01] MEDS ORDERED: HYDROcodone/Acetaminophen 5/325 mg Tablet ONE (14:58)
== END 2024-02-01 15:11 | disposition home or self-care (01) ==
LOC: CSHERS 13:52
DX: M54.50 Low back pain, unspecified (principal); M17.0 Bilateral primary osteoarthritis of knee; I10 Essential (primary) hypertension
CPT/HCPCS: 99283

== ENCOUNTER 2024-06-14 11:37 | Emergency (ER) | payer OTHER | END 2024-06-14 14:08 | disposition home or self-care (01) | LOC: CSHERS 11:37 | DX: J06.9 Acute upper respiratory infection, unspecified (principal); I10 Essential (primary) hypertension | CPT/HCPCS: 71045; 87428 ==

== ENCOUNTER 2025-03-05 08:04 | Observation (INO) | payer OTHER ==
[2025-03-05] MEDS ORDERED: Acetaminophen 500 MG TAB ONE (08:56)
[2025-03-05 09:06] LABS: #Basophils Less than 0.03 10x3/uL (0.0-0.2); #Eosinophils 0.16 10x3/uL (0.0-0.5); #Monocytes 1.29 10x3/uL (0.0-1.1); #Neutrophils 7.92 10x3/uL (1.5-8.4); %Basophils 0.1 % (0.0-2.0); %Eosinophils 1.3 % (0.0-6.0); %Lymphocytes 26.1 % (18.0-47.0); %Monocytes 10.1 % (0.0-10.0); %Neutrophils 61.8 % (40.0-75.0); Glucose, Urine (Dipstick) Normal (Negative); Hematocrit 38.3 % (34.9-44.5); Hemoglobin 12.3 g/dL (12.0-15.5); Leukocyte Negative (Negative); Mean Corpuscular Hemoglobin 30.0 pg (27.0-33.0); Mean Corpuscular Volume 93.4 fL (81.6-98.3); Platelet Count 252 10x3/uL (150-450); Protein, Urine (Dipstick) 15 mg/dl (Neg-Trace); Red Blood Cell (RBC) Count 4.10 10x6/uL (3.90-5.03); Specific Gravity, Urine 1.015 (1.005-1.030); White Blood Cell (WBC) Count 12.80 10x3/uL (3.5-10.5)
[2025-03-05 09:18] LABS: BHCG - Serum Negative (NEGATIVE); Pregs Control Background? CLEAR/WHITE (CLR/WHITE); Pregs Control Bar Appear? YES (CONTROL BAR)
[2025-03-05 09:26] LABS: ALT (SGPT) 35 U/L (Less than 34); AST (SGOT) 26 U/L (11-34); Albumin 3.8 g/dL (3.1-4.5); Alkaline Phosphatase 108 U/L (40-110); Anion Gap 13 mmol/L (10-20); BUN (Urea Nitrogen) 27 mg/dL (9.8-20.1); Bilirubin, Total 0.2 mg/dL (0.3-1.2); Calc. Creatinine Clearance 0 mL/min (70-130); Calcium 8.8 mg/dL (7.8-10.44); Carbon Dioxide 26 mmol/L (22-29); Chloride 106 mmol/L (98-107); Globulin 3.4 g/dL (2.4-3.5); Glucose 97 mg/dL (70-105); Potassium 4.8 mmol/L (3.5-5.1); Sodium 140 mmol/L (136-145)
[2025-03-05 09:28] LABS: Lipase 50 U/L (8-78); Magnesium 2.4 mg/dL (1.6-2.6)
[2025-03-05 10:18] LABS: Troponin I 0.306 ng/mL (< 0.028)
[2025-03-05] MEDS ORDERED: Aspirin Chewable 81 MG TAB ONE (10:38)
[2025-03-05 10:41] LABS: CAUTI Indications for Culture Pelvic or flank pain; RBC/HPF 0-3 HPF (0-3); WBC/HPF 0-3 HPF (0-3)
[2025-03-05 10:42] LABS: Bacteria/HPF None Seen HPF (None Seen)
[2025-03-05 10:43] LABS: Urine Culture Reflex No No
[2025-03-05] MEDS ORDERED: Nitroglycerin 0.4 MG TAB (25 Tab Bottle) SL PRN (11:04)
[2025-03-05] MEDS ORDERED: Senokot S 8.6-50 MG TAB PO PRN (11:04)
[2025-03-05] MEDS ORDERED: Acetaminophen 325 MG TAB PO PRN (11:04)
[2025-03-05 11:50] LABS: Cocaine Metabolite Screen Negative (Negative); THC/Cannabinoid Screen PRELIM POSITIVE (Negative); Tricyclic Screen Negative (Negative)
[2025-03-05 12:19] VITALS: BMI 42.3
[2025-03-05] MEDS: Ketorolac Tromethamine 30 MG (1 mL) VIAL IVP PRN (14:06)
[2025-03-05 14:21] LABS: Troponin I 0.288 ng/mL (< 0.028)
[2025-03-05 16:13] VITALS: BP 122/63; TEMP 97.9
[2025-03-05 17:08] LABS: Troponin I 0.313 ng/mL (< 0.028)
[2025-03-05] MEDS ORDERED: Enoxaparin 80 MG (0.8 mL) SYRINGE SC SCH (21:00)
[2025-03-05] MEDS ORDERED: Famotidine/PF 20 mg/2ml Vial SLOW IVP SCH (21:00)
[2025-03-05] MEDS ORDERED: Diclofenac 25 MG DR.TAB PO SCH (21:00)
[2025-03-06 00:58] LABS: Chlamydia by PCR, EndoCx Swab Not Detected (NotDetected); GC by PCR, EndoCx Swab Not Detected (NotDetected)
[2025-03-06] MEDS ORDERED: Pantoprazole 40 MG DR.TAB PO SCH (09:00)
[2025-03-06] MEDS ORDERED: ENTECAVIR 0.5 MG PO SCH (09:00)
[2025-03-06] MEDS ORDERED: Aspirin Chewable 81 MG TAB PO SCH (09:00)
== END 2025-03-05 18:18 | disposition left against medical advice (07) ==
LOC: CSHERS 08:04 → CSHTELE 11:01
PROVIDERS: ADMIT Internal Medicine; ATTEND Nurse Practitioner Acute Care
DX: R07.89 Other chest pain (principal); R10.9 Unspecified abdominal pain; M54.50 Low back pain, unspecified; N89.8 Other specified noninflammatory disorders of vagina; I10 Essential (primary) hypertension; I25.10 Atherosclerotic heart disease of native coronary artery without angina pectoris; E78.5 Hyperlipidemia, unspecified; F31.9 Bipolar disorder, unspecified; K21.9 Gastro-esophageal reflux disease without esophagitis; Z79.899 Other long term (current) drug therapy
CPT/HCPCS: 36415; 71045; 76856; 80306; 81001; 83690; 83735; 84484; 84703; 87480; 87491; 87510; 87591; 87660; 93005; 96372; 96374; G0378; J1650; J1885